=== PATIENT | female | born 1940 | race Caucasian/White ===

== ENCOUNTER 2021-04-05 09:13 | Emergency (ER) | payer OTHER, BC ==
--- OUTSIDE RECORDS SUMMARY | 2021-04-05 09:18 | XMS REPORT | Continuity of Care Document ---
:1940 Author Organization [facility] t Address [address] [place] [address] Dr. Hanley. [address] [place] [address] Care Team Providers Name Role Phone RANDY Willis Primary Care Physician Unavailable Jason PRESSLEY Attending Clinician Unavailable Dale ANDERSON Attending Clinician Unavailable Pob, Lab Main Attending Clinician Unavailable Justin ORTIZ, S Attending Clinician Doctor Unassigned, Name Attending Clinician Unavailable Chad ORTIZ, A Attending Clinician Only, Test Attending Clinician Unavailable 1, Lab Attending Clinician Unavailable Galo Francisco CRNA Attending Clinician CHAD, Jason Admitting Clinician Unavailable Chad ORTIZ, A Admitting Clinician Justin ORTIZ S Admitting Clinician Payers Payer Name Policy Type Policy Number Effective Date Expiration Date S [facility] MEDICARE PART A \T\ [id number] 2006 B 00:00:00 BC TRADITIONAL [id number] 2008 00:00:00 Problems Condition Condition Condition Status Onset Resolution Last Treating Co mments Source Name Details Category Date Date Treatment Clinician Date No known No known Disease Unive rs active active ity of problems problems [facility] Allergies, Adverse Reactions, Alerts Allergy Allergy Status Severity Reaction(s) Onset Inactive Treating Comm ents Source Name Type Date Date Clinician Lisinopr Propensi Active Cough 2019-0 Univer s il ty to 8-14 ity of adverse 00:00: [place] reaction [address] [place] [address] Branch LISINOPR DRUG Active COUGH 2019-0 Univers [place] INGREDI 8-14 ity of 00:00: [address] Social History Social Habit Start Date Stop Date Quantity Comments Source Exposure to Not sure University SARS-CoV-2 [facility] (event) Branch Alcohol intake 2020-02-06 2020-02-06 Ex-drinker [facility] 00:00:00 00:00:00 (finding) [facility] Tobacco use and 2018-11-21 2018-11-21 Never used Universit y of exposure 00:00:00 00:00:00 [facility] Sex Assigned At [birth year] Universit y of 00:00:00 00:00:00 [facility] Smoking Status Start Date Stop Date Source Unknown if ever smoked Universit y of [facility] Never smoker [facility] Medications Ordered Filled Start Stop Current Ordering Indication Dosage Frequency Signature Comments Components Source Medication Medication Date Date Medication? Clinician (SIG) Name Name glimepiride 2019-04 Yes 4mg Take 4 mg U nivers 4 mg tablet 0-28 by mouth 2 it y of 14:09: (two) [address] daily[address] Branch metoprolol 2019-04 Yes 100mg Take 100 Un mike tartrate 0-28 mg by ity of 100 mg 14:09: mouth 2 [place] [address] (two) Medical times [place] daily. metFORMIN 2019- Yes 1000mg Take 1,000 Univers 1,000 mg 24 0-28 mg by ity of hr tablet 14:09: mouth 2 [place] [address] (two) Medical times [place] daily. atorvastati 2019- Yes 20mg Take 20 mg Univers n 20 mg 0-28 by mouth ity of tablet 14:09: at [place] [address] bedtime. Medical Branch pioglitazon 2019- Yes 30mg Take 30 mg Univers e 30 mg 0-28 by mouth ity of tablet 14:09: daily. [address] Branch olmesartan 2019- Yes 20mg Take 20 mg U nivers 20 mg 0-28 by mouth ity of tablet 14:09: daily. [address] Branch celecoxib 2019- Yes 200mg Take 200 Uni vers 200 mg 0-28 mg by ity of capsule 14:09: mouth 2 [place] [address] (two) Medical times [place] daily. GABAPENTIN 2019- Yes 400mg Take 400 Un mike ORAL 0-28 mg by ity of 14:09: mouth 5 [place] [address] (five) Medical times Branch daily. eszopiclone 2020- Yes 1mg Take 1 mg U nivers (LUNESTA) 1 0-28 by mouth ity of mg tablet 14:09: at [place] [address] bedtime. Medical Indication Branch s: 3 x weeks HYDROcodone 2020- Yes 1{tbl} Take 1 Un mike -acetaminop 0-28 tablet by ity of hen 5-325 14:09: mouth 2 [facility] 46 (two) Medical times Branch daily. lansoprazol 2020- Yes 15mg Take 15 mg Univers e 15 mg 0-28 by mouth ity of capsule 14:09: daily. [place] [address] Medical Branch glimepiride 2019- Yes 4mg Take 4 mg U nivers 4 mg tablet 0-28 by mouth 2 it y of 14:09: (two) [place] [address] times Medical daily. Branch metoprolol 2019-04 Yes 100mg Take 100 Un mike tartrate 0-28 mg by ity of 100 mg 14:09: mouth 2 [place] [address] (two) Medical times Branch daily. metFORMIN 2019- Yes 1000mg Take 1,000 Univers 1,000 mg 24 0-28 mg by ity of hr tablet 14:09: mouth 2 [place] [address] (two) Medical times Branch daily. atorvastati 2019- Yes 20mg Take 20 mg Univers n 20 mg 0-28 by mouth ity of tablet 14:09: at [place] [address] bedtime. Medical Branch pioglitazon 2019-04 Yes 30mg Take 30 mg Univers e 30 mg 0-28 by mouth ity of tablet 14:09: daily. [place] [address] Medical Branch olmesartan 2019- Yes 20mg Take 20 mg U nivers 20 mg 0-28 by mouth ity of tablet 14:09: daily. [place] [address] Medical Branch celecoxib 2020- Yes 200mg Take 200 Uni vers 200 mg 0-28 mg by ity of capsule 14:09: mouth 2 [place] [address] (two) Medical times Branch daily. GABAPENTIN 2020- Yes 400mg Take 400 Un mike ORAL 0-28 mg by ity of 14:09: mouth 5 [place] [address] (five) Medical times Branch daily. eszopiclone 2020- Yes 1mg Take 1 mg U nivers (LUNESTA) 1 0-28 by mouth ity of mg tablet 14:09: at [place] [address] bedtime. Medical Indication Branch s: 3 x weeks HYDROcodone 2019- Yes 1{tbl} Take 1 Un mike -acetaminop 0-28 tablet by ity of hen 5-325 14:09: mouth 2 [place] mg tablet 46 (two) Medical times Branch daily. lansoprazol 2019-04 Yes 15mg Take 15 mg Univers e 15 mg 0-28 by mouth ity of capsule 14:09: daily. [place] [address] Medical Branch glimepiride 2019-04 Yes 4mg Take 4 mg U nivers 4 mg tablet 0-28 by mouth 2 it y of 14:09: (two) [place] [address] times Medical daily. Branch metoprolol 2019-04 Yes 100mg Take 100 Un mike tartrate 0-28 mg by ity of 100 mg 14:09: mouth 2 [place] tablet 46 (two) Medical times Branch daily. metFORMIN 2019- Yes 1000mg Take 1,000 Univers 1,000 mg 24 0-28 mg by ity of hr tablet 14:09: mouth 2 [place] [address] (two) Medical times Branch daily. atorvastati 2019-04 Yes 20mg Take 20 mg Univers n 20 mg 0-28 by mouth ity of tablet 14:09: at [place] [address] bedtime. Medical Branch pioglitazon 2019-04 Yes 30mg Take 30 mg Univers e 30 mg 0-28 by mouth ity of tablet 14:09: daily. [place] [address] Medical Branch olmesartan 2019-04 Yes 20mg Take 20 mg U nivers 20 mg 0-28 by mouth ity of tablet 14:09: daily. [place] [address] Medical Branch celecoxib 2019- Yes 200mg Take 200 Uni vers 200 mg 0-28 mg by ity of capsule 14:09: mouth 2 [place] [address] (two) Medical times Branch daily. GABAPENTIN 2020- Yes 400mg Take 400 Un mike ORAL 0-28 mg by ity of 14:09: mouth 5 [place] [address] (five) Medical times Branch daily. eszopiclone 2020- Yes 1mg Take 1 mg U nivers (LUNESTA) 1 0-28 by mouth ity of mg tablet 14:09: at [place] [address] bedtime. Medical Indication Branch s: 3 x weeks HYDROcodone 2019- Yes 1{tbl} Take 1 Un mike -acetaminop 0-28 tablet by ity of hen 5-325 14:09: mouth 2 [place] mg tablet 46 (two) Medical times Branch daily. lansoprazol 2019-04 Yes 15mg Take 15 mg Univers e 15 mg 0-28 by mouth ity of capsule 14:09: daily. [address] Branch glimepiride 2019- Yes 4mg Take 4 mg U nivers 4 mg tablet 0-28 by mouth 2 it y of 14:09: (two) [place] [address] times Medical daily. Branch metoprolol 2019-04 Yes 100mg Take 100 Un mike tartrate 0-28 mg by ity of 100 mg 14:09: mouth 2 [place] tablet 46 (two) Medical times Branch daily. metFORMIN 2019- Yes 1000mg Take 1,000 Univers 1,000 mg 24 0-28 mg by ity of hr tablet 14:09: mouth 2 [place] [address] (two) Medical times Branch daily. atorvastati 2019-04 Yes 20mg Take 20 mg Univers n 20 mg 0-28 by mouth ity of tablet 14:09: at [place] [address] bedtime. Medical Branch pioglitazon 2019-04 Yes 30mg Take 30 mg Univers e 30 mg 0-28 by mouth ity of tablet 14:09: daily. [address] Branch olmesartan 2019-04 Yes 20mg Take 20 mg U nivers 20 mg 0-28 by mouth ity of tablet 14:09: daily. [address] Branch celecoxib 2019- Yes 200mg Take 200 Uni vers 200 mg 0-28 mg by ity of capsule 14:09: mouth 2 [place] [address] (two) Medical times Branch daily. GABAPENTIN 2019- Yes 400mg Take 400 Un mike ORAL 0-28 mg by ity of 14:09: mouth 5 [place] [address] (five) Medical times Branch daily. eszopiclone 2019-04 Yes 1mg Take 1 mg U nivers (LUNESTA) 1 0-28 by mouth ity of mg tablet 14:09: at [place] [address] bedtime. Medical Indication Branch s: 3 x weeks HYDROcodone 2019- Yes 1{tbl} Take 1 Un mike -acetaminop 0-28 tablet by ity of hen 5-325 14:09: mouth 2 [place] mg tablet 46 (two) Medical times Branch daily. lansoprazol 2019- Yes 15mg Take 15 mg Univers e 15 mg 0-28 by mouth ity of capsule 14:09: daily. [address] Branch glimepiride 2019-04 Yes 4mg Take 4 mg U nivers 4 mg tablet 0-28 by mouth 2 it y of 14:09: (two) [place] [address] times Medical daily. Branch metoprolol 2019-04 Yes 100mg Take 100 Un mike tartrate 0-28 mg by ity of 100 mg 14:09: mouth 2 [place] tablet 46 (two) Medical times Branch daily. metFORMIN 2019-04 Yes 1000mg Take 1,000 Univers 1,000 mg 24 0-28 mg by ity of hr tablet 14:09: mouth 2 [place] [address] (two) Medical times Branch daily. atorvastati 2019-04 Yes 20mg Take 20 mg Univers n 20 mg 0-28 by mouth ity of tablet 14:09: at [place] [address] bedtime. Medical Branch pioglitazon 2019-04 Yes 30mg Take 30 mg Univers e 30 mg 0-28 by mouth ity of tablet 14:09: daily. [place] [address] Medical Branch olmesartan 2019-04 Yes 20mg Take 20 mg U nivers 20 mg 0-28 by mouth ity of tablet 14:09: daily. [address] Branch celecoxib 2019- Yes 200mg Take 200 Uni vers 200 mg 0-28 mg by ity of capsule 14:09: mouth 2 [place] [address] (two) Medical times Branch daily. GABAPENTIN 2019-04 Yes 400mg Take 400 Un mike ORAL 0-28 mg by ity of 14:09: mouth 5 [place] [address] (five) Medical times Branch daily. eszopiclone 2019-04 Yes 1mg Take 1 mg U nivers (LUNESTA) 1 0-28 by mouth ity of mg tablet 14:09: at [place] [address] bedtime. Medical Indication Branch s: 3 x weeks HYDROcodone 2019- Yes 1{tbl} Take 1 Un mike -acetaminop 0-28 tablet by ity of hen 5-325 14:09: mouth 2 [place] mg tablet (two) Medical times Branch daily. lansoprazol 2019- Yes 15mg Take 15 mg Univers e 15 mg 0-28 by mouth ity of capsule 14:09: daily. [place] [address] Medical Branch neomycin-po 2019- Yes PRN, Univer s lymyxin-dex 0-28 Starting ity of amethasone 13:18: Wed [place] (MAXITROL) 00 02/05/20 Medic al 3.5 at 0818, Branch mg/g-10,000 Until unit/g-0.1 Discontinu % ed, ophthalmic Routine, ointment Intra-op dexamethaso 2019-04 Yes PRN, Univer s ne 0-28 Starting ity of (DECADRON 13:17: Mon [place] PHOSPHATE) 00 02/05/20 Medic al injection at 0817, Branch Until Discontinu ed, Routine, Intra-op ceFAZolin 2019-04 Yes PRN, Univers (ANCEF) 0-28 Starting ity of injection 13:17: Mon02/05/20 Medical at 0817, Branch Until Discontinu ed, LISA, Intra-op carbachoL 2019-04 Yes PRN, Univers (MIOSTAT) 0-28 Starting ity of 0.01 % 13:17: Mon intraocular 00 02/05/20 Medi kev injection at 0817, Branch Until Discontinu ed, Routine, Intra-op sodium 2019-04 Yes PRN, Univers chloride 0-28 Starting ity of (NS) 13:16: Mon [place] injection 00 02/05/20 Medica l at 0816, Branch Until Discontinu ed, Routine, Intra-op gentamicin 2019-04 Yes PRN, Univers injection 0-28 Starting ity of 13:16: Mon02/05/20 Medical at 0816, Branch Until Discontinu ed, LISA, Intra-op EPINEPHrine 2019-04 Yes PRN, Univer s 1:1,000 (1 0- Starting ity o f mg/mL) 13:14: Mon [place] (ADRENALIN) 00 02/05/20 Medi kev injection at 0814, Branch Until Discontinu ed, Routine, Intra-op DUOVISC 2019-04 Yes PRN, Univers (DUOVISC 0-28 Starting ity of VISCO 13:14: Mon [place] ELASTIC) 3 00 02/05/20 Medic al %-4 %(0.5 at 0814, Branch mL) 1 % Until (0.55 mL) Discontinu intraocular ed, injection Routine, Intra-op balanced 2019-04 Yes PRN, Univers salt irrig 0-28 Starting ity o f soln comb1 13:13: Mon [place] (BSS PLUS) 00 02/05/20 Medic al ophthalmic at 0813, Branc h solution Until 500 mL bag Discontinu ed, Routine, Intra-op water for 2019-04 Yes PRN, Univers irrigation 0-28 Starting ity o f irrigation 13:00: Wed [place] solution 02/05/20 Medical at 0800, Branch Until Discontinu ed, Routine, Intra-op mydriatic 2019-04 2020- No .5mL 0.5 mL, Univ ers #5 0-28 10- Right Eye, ity of ophthalmic 13:00: 11:54 ONCE, 1 [place] as solution 00 :00 dose, Mon Medica l 0.5 mL 02/05/20 Branch syringe at 0800, Routine Hyaluronida 2019-04 Yes PRN, Univer s se, Human 0-28 Starting ity of Recomb. 12:58: Mon [place] (HYLENEX) 02/05/20 Medica l injection at 0758, [place] Until Discontinu ed, Routine, Intra-op eye block 2019-04 Yes PRN, Univers syringe 11 0-28 Starting ity o f mL 12:58: Wed [place] 02/05/20 Medical at 0758, Branch Until Discontinu ed, Intra-op lactated 2019-04 2020- No 1000mL at [address] [facility] rs ringers IV 0-28 10-28 mL/hr, ity of infusion 11:45: 11:54 1,000 mL, Gurdeep as 1,000 mL 00 :00 IV Medical Infusion, [place] ONCE, 1 dose, Mon02/05/20 at 0645, Routine, DSU Pre-op glimepiride 2019-04 Yes 4mg Take 4 mg U nivers 4 mg tablet 0-28 by mouth 2 it y of 09:09: (two) [place] [address] times [facility] daily. Branch metoprolol 2019-04 Yes 100mg Take 100 Un mike tartrate 0-28 mg by ity of 100 mg 09:09: mouth 2 [place] tablet 46 (two) Medical times [place] daily. metFORMIN 2019- Yes 1000mg Take 1,000 Univers 1,000 mg 24 0-28 mg by ity of hr tablet 09:09: mouth 2 [place] 46 (two) Medical times [place] daily. atorvastati 2019-04 Yes 20mg Take 20 mg Univers n 20 mg 0-28 by mouth ity of tablet 09:09: at [place] [address] bedtime. Medical Branch pioglitazon 2019-04 Yes 30mg Take 30 mg Univers e 30 mg 0-28 by mouth ity of tablet 09:09: daily. [place] [address] Medical Branch olmesartan 2020- Yes 20mg Take 20 mg U nivers 20 mg 0-28 by mouth ity of tablet 09:09: daily. [place] [address] Medical Branch celecoxib 2020- Yes 200mg Take 200 Uni vers 200 mg 0-28 mg by ity of capsule 09:09: mouth 2 [place] [address] (two) Medical times Branch daily. GABAPENTIN 2020- Yes 400mg Take 400 Un mike ORAL 0-28 mg by ity of 09:09: mouth 5 [place] [address] (five) Medical times Branch daily. eszopiclone 2020- Yes 1mg Take 1 mg U nivers (LUNESTA) 1 0-28 by mouth ity of mg tablet 09:09: at [place] [address] bedtime. Medical Indication Branch s: 3 x weeks HYDROcodone 2020- Yes 1{tbl} Take 1 Un mike -acetaminop 0-28 tablet by ity of hen 5-325 09:09: mouth 2 [place] [address] (two) Medical times Branch daily. lansoprazol 2020- Yes 15mg Take 15 mg Univers e 15 mg 0-28 by mouth ity of capsule 09:09: daily. [address] Branch glimepiride 2019- Yes 4mg Take 4 mg U nivers 4 mg tablet 0-28 by mouth 2 it y of 09:09: (two) [place] [address] times [facility] daily. Branch metoprolol 2019- Yes 100mg Take 100 Un mike tartrate 0-28 mg by ity of 100 mg 09:09: mouth 2 [place] [address] (two) Medical times Branch daily. metFORMIN 2020- Yes 1000mg Take 1,000 Univers 1,000 mg 24 0-28 mg by ity of hr tablet 09:09: mouth 2 [place] [address] (two) Medical times Branch daily. atorvastati 2020- Yes 20mg Take 20 mg Univers n 20 mg 0-28 by mouth ity of tablet 09:09: at [place] [address] bedtime. Medical Branch pioglitazon 2020- Yes 30mg Take 30 mg Univers e 30 mg 0-28 by mouth ity of tablet 09:09: daily. [place] [address] Medical Branch olmesartan 2020- Yes 20mg Take 20 mg U nivers 20 mg 0-28 by mouth ity of tablet 09:09: daily. [place] [address] Medical Branch celecoxib 2020- Yes 200mg Take 200 Uni vers 200 mg 0-28 mg by ity of capsule 09:09: mouth 2 [place] [address] (two) Medical times Branch daily. GABAPENTIN 2019-04 Yes 400mg Take 400 Un mike ORAL 0-28 mg by ity of 09:09: mouth 5 [place] 46 (five) Medical times Branch daily. eszopiclone 2019-04 Yes 1mg Take 1 mg U nivers (LUNESTA) 1 0-28 by mouth ity of mg tablet 09:09: at [place] [address] bedtime. Medical Indication Branch s: 3 x weeks HYDROcodone 2019- Yes 1{tbl} Take 1 Un mike -acetaminop 0-28 tablet by ity of hen 5-325 09:09: mouth 2 [facility] tablet 46 (two) Medical times Branch daily. lansoprazol 2019-04 Yes 15mg Take 15 mg Univers e 15 mg 0-28 by mouth ity of capsule 09:09: daily. [place] [address] Medical Branch glimepiride 2019-04 Yes 4mg Take 4 mg U nivers 4 mg tablet 0-14 by mouth 2 it y of 15:16: (two) [place] [address] times Medical daily. Branch metoprolol 2019-04 Yes 100mg Take 100 Un mike tartrate 0-14 mg by ity of 100 mg 15:16: mouth 2 [place] [address] (two) Medical times Branch daily. metFORMIN 2019-04 Yes 1000mg Take 1,000 Univers 1,000 mg 24 0-14 mg by ity of hr tablet 15:16: mouth 2 [place] [address] (two) Medical times Branch daily. atorvastati 2019- Yes 20mg Take 20 mg Univers n 20 mg 0-14 by mouth ity of tablet 15:16: at [place] [address] bedtime. Medical Branch pioglitazon 2019- Yes 30mg Take 30 mg Univers e 30 mg 0-14 by mouth ity of tablet 15:16: daily. [place] [address] Medical Branch olmesartan 2019- Yes 20mg Take 20 mg U nivers 20 mg 0-14 by mouth ity of tablet 15:16: daily. [place] [address] Medical Branch celecoxib 2019- Yes 200mg Take 200 Uni vers 200 mg 0-14 mg by ity of capsule 15:16: mouth 2 [place] [address] (two) Medical times Branch daily. GABAPENTIN 2019- Yes 400mg Take 400 Un mike ORAL 0-14 mg by ity of 15:16: mouth 5 [place] [address] (five) Medical times Branch daily. eszopiclone 2020- Yes 1mg Take 1 mg U nivers (LUNESTA) 1 0-14 by mouth ity of mg tablet 15:16: at [place] [address] bedtime. Medical Indication Branch s: 3 x weeks HYDROcodone 2020- Yes 1{tbl} Take 1 Un mike -acetaminop 0-14 tablet by ity of hen 5-325 15:16: mouth 2 [place] mg tablet 31 (two) Medical times Branch daily. lansoprazol 2019- Yes 15mg Take 15 mg Univers e 15 mg 0-14 by mouth ity of capsule 15:16: daily. [address] Branch glimepiride 2019- Yes 4mg Take 4 mg U nivers 4 mg tablet 0-14 by mouth 2 it y of 15:16: (two) [place] [address] times Medical daily. Branch metoprolol 2019-04 Yes 100mg Take 100 Un mike tartrate 0-14 mg by ity of 100 mg 15:16: mouth 2 [place] tablet (two) Medical times Branch daily. metFORMIN 2019- Yes 1000mg Take 1,000 Univers 1,000 mg 24 0-14 mg by ity of hr tablet 15:16: mouth 2 [place] [address] (two) Medical times Branch daily. atorvastati 2019- Yes 20mg Take 20 mg Univers n 20 mg 0-14 by mouth ity of tablet 15:16: at [place] [address] bedtime. Medical Branch pioglitazon 2019- Yes 30mg Take 30 mg Univers e 30 mg 0-14 by mouth ity of tablet 15:16: daily. [place] [address] Medical Branch olmesartan 2019- Yes 20mg Take 20 mg U nivers 20 mg 0-14 by mouth ity of tablet 15:16: daily. [place] [address] Medical Branch celecoxib 2020- Yes 200mg Take 200 Uni vers 200 mg 0-14 mg by ity of capsule 15:16: mouth 2 [place] [address] (two) Medical times Branch daily. GABAPENTIN 2020- Yes 400mg Take 400 Un mike ORAL 0-14 mg by ity of 15:16: mouth 5 [place] [address] (five) Medical times Branch daily. eszopiclone 2019- Yes 1mg Take 1 mg U nivers (LUNESTA) 1 0-14 by mouth ity of mg tablet 15:16: at [place] [address] bedtime. Medical Indication Branch s: 3 x weeks HYDROcodone 2019- Yes 1{tbl} Take 1 Un mike -acetaminop 0-14 tablet by ity of hen 5-325 15:16: mouth 2 [facility] tablet (two) Medical times Branch daily. lansoprazol 2019-04 Yes 15mg Take 15 mg Univers e 15 mg 0-14 by mouth ity of capsule 15:16: daily. [place] [address] Medical Branch glimepiride 2019- Yes 4mg Take 4 mg U nivers 4 mg tablet 0-14 by mouth 2 it y of 15:16: (two) [place] [address] times Medical daily. Branch metoprolol 2019-04 Yes 100mg Take 100 Un mike tartrate 0-14 mg by ity of 100 mg 15:16: mouth 2 [place] [address] (two) Medical times Branch daily. metFORMIN 2019-04 Yes 1000mg Take 1,000 Univers 1,000 mg 24 0-14 mg by ity of hr tablet 15:16: mouth 2 [place] [address] (two) Medical times Branch daily. atorvastati 2019- Yes 20mg Take 20 mg Univers n 20 mg 0-14 by mouth ity of tablet 15:16: at [place] [address] bedtime. Medical Branch pioglitazon 2019- Yes 30mg Take 30 mg Univers e 30 mg 0-14 by mouth ity of tablet 15:16: daily. [place] [address] Medical Branch olmesartan 2019- Yes 20mg Take 20 mg U nivers 20 mg 0-14 by mouth ity of tablet 15:16: daily. [place] [address] Medical Branch celecoxib 2020- Yes 200mg Take 200 Uni vers 200 mg 0-14 mg by ity of capsule 15:16: mouth 2 [place] [address] (two) Medical times Branch daily. GABAPENTIN 2020- Yes 400mg Take 400 Un mike ORAL 0-14 mg by ity of 15:16: mouth 5 [place] [address] (five) Medical times Branch daily. eszopiclone 2020- Yes 1mg Take 1 mg U nivers (LUNESTA) 1 0-14 by mouth ity of mg tablet 15:16: at [place] [address] bedtime. Medical Indication Branch s: 3 x weeks HYDROcodone 2019- Yes 1{tbl} Take 1 Un mike -acetaminop 0-14 tablet by ity of hen 5-325 15:16: mouth 2 [place] mg tablet 31 (two) Medical times [place] daily. lansoprazol 2019-04 Yes 15mg Take 15 mg Univers e 15 mg 0-14 by mouth ity of capsule 15:16: daily. [place] 31 Medical Branch sodium 2019-04 Yes PRN, Univers chloride 0-14 Starting ity of (NS) 14:28: Mon [place] injection 00 01/22/20 Medica l at 0928, Branch Until Discontinu ed, Routine, Intra-op neomycin-po 2019-04 Yes PRN, Univer s lymyxin-dex 0-14 Starting ity of amethasone 14:28: Mon [place] (MAXITROL) 00 01/22/20 Medic al 3.5 at 0928, Branch mg/g-10,000 Until unit/g-0.1 Discontinu % ed, ophthalmic Routine, ointment Intra-op gentamicin 2019-04 Yes PRN, Univers injection 0-14 Starting ity of 14:28: Mon [place] 01/22/20 Medical at 0928, [place] Until Discontinu ed, LISA, Intra-op dexamethaso 2019-04 Yes PRN, Univer s ne 0-14 Starting ity of (DECADRON 14:28: Mon [place] PHOSPHATE) 01/22/20 Medic al injection at 0928, [place] Until Discontinu ed, Routine, Intra-op ceFAZolin 2019-04 Yes PRN, Univers (ANCEF) 0-14 Starting ity of injection 14:28: Mon [place] 01/22/20 Medical at 0928, [place] Until Discontinu ed, LISA, Intra-op EPINEPHrine 2019-04 Yes PRN, Univer s 1:1,000 (1 0-14 Starting ity o f mg/mL) 14:21: Mon [place] (ADRENALIN) 00 01/22/20 Medi kev injection at 0921, [place] Until Discontinu ed, Routine, Intra-op DUOVISC 2019-04 Yes PRN, Univers (DUOVISC 0-14 Starting ity of VISCO 14:20: Mon [place] ELASTIC) 3 00 01/22/20 Medic al %-4 %(0.5 at 0920, Branch mL) 1 % Until (0.55 mL) Discontinu intraocular ed, injection Routine, Intra-op water for 2019-04 Yes PRN, Univers irrigation 0-14 Starting ity o f irrigation 14:13: Mon [place] solution 00 01/22/20 Medical at 0913, Branch Until Discontinu ed, Routine, Intra-op Hyaluronida 2019-04 Yes PRN, Univer s se, Human 0-14 Starting ity of Recomb. 14:07: Mon [place] (HYLENEX) 00 01/22/20 Medica l injection at 0907, Branch Until Discontinu ed, Routine, Intra-op eye block 2019-04 Yes PRN, Univers syringe 11 0-14 Starting ity o f mL 14:07: Mon [place] 00 01/22/20 Medical at 0907, Branch Until Discontinu ed, Intra-op carbachoL 2019-04 Yes PRN, Univers (MIOSTAT) 0-14 Starting ity of 0.01 % 13:59: Mon [place] intraocular 01/22/20 Medi kev injection at 0859, Branch Until Discontinu ed, Routine, Intra-op balanced 2019-04 Yes PRN, Univers salt irrig 0-14 Starting ity o f soln comb1 13:56: Mon [place] (BSS PLUS) 01/22/20 Medic al ophthalmic at 0856, Bran h solution Until 500 mL bag Discontinu ed, Routine, Intra-op mydriatic 2019-04 2020- No .5mL 0.5 mL, [facility] ers #5 0-14 1014 Left Eye, ity of ophthalmic 12:45: 12:45 ONCE, 1 [place] as solution 00 :00 dose, Mon Medica l 0.5 mL 01/22/20 Branch syringe at 0745, Routine, DSU Pre-op lactated 2019-04 2020- No 1000mL at [address] [facility] rs ringers IV 0-14 10-14 mL/hr, ity of infusion 12:45: 12:45 1,000 mL, [place] as 1,000 mL 00 :00 IV Medical Infusion, Branch ONCE, 1 dose, Mon01/22/20 at 0745, Routine, DSU Pre-op glimepiride 2018-04 Yes 4mg Take 4 mg U nivers 4 mg tablet 0-07 by mouth 2 it y of 16:35: (two) [place] 57 times Medical daily. Branch metoprolol 2018-04 Yes 100mg Take 100 Un mike tartrate 0-07 mg by ity of 100 mg 16:35: mouth 2 [place] tablet 57 (two) Medical times Branch daily. metFORMIN 2018-04 Yes 1000mg Take 1,000 Univers 1,000 mg 24 0-07 mg by ity of hr tablet 16:35: mouth 2 [place] [address] (two) Medical times Branch daily. atorvastati 2019 Yes 20mg Take 20 mg Univers n 20 mg 0-07 by mouth ity of tablet 16:35: at [place] [address] bedtime. Medical Branch pioglitazon 2018-04 Yes 30mg Take 30 mg Univers e 30 mg 0-07 by mouth ity of tablet 16:35: daily. [place] [address] Medical Branch olmesartan 2018- Yes 20mg Take 20 mg U nivers 20 mg 0-07 by mouth ity of tablet 16:35: daily. [place] [address] Medical Branch celecoxib 2019- Yes 200mg Take 200 Uni vers 200 mg 0-07 mg by ity of capsule 16:35: mouth 2 [place] [address] (two) Medical times Branch daily. GABAPENTIN 2018-04 Yes 400mg Take 400 Un mike ORAL 0-07 mg by ity of 16:35: mouth 5 [place] [address] (five) Medical times Branch daily. eszopiclone 2018- Yes 1mg Take 1 mg U nivers (LUNESTA) 1 0-07 by mouth ity of mg tablet 16:35: at [place] [address] bedtime. Medical Indication Branch s: 3 x weeks HYDROcodone 2018- Yes 1{tbl} Take 1 Un mike -acetaminop 0-07 tablet by ity of hen 5-325 16:35: mouth 2 [place] mg tablet 57 (two) Medical times Branch daily. lansoprazol 2018- Yes 15mg Take 15 mg Univers e 15 mg 0-07 by mouth ity of capsule 16:35: daily. [place] [address] Medical Branch glimepiride 2018- Yes 4mg Take 4 mg U nivers 4 mg tablet 0-07 by mouth 2 it y of 16:35: (two) [place] [address] times Medical daily. Branch metoprolol 2018-04 Yes 100mg Take 100 Un mike tartrate 0-07 mg by ity of 100 mg 16:35: mouth 2 [place] tablet 57 (two) Medical times Branch daily. metFORMIN 2018-04 Yes 1000mg Take 1,000 Univers 1,000 mg 24 0-07 mg by ity of hr tablet 16:35: mouth 2 [place] 57 (two) Medical times Branch daily. atorvastati 2018-04 Yes 20mg Take 20 mg Univers n 20 mg 0-07 by mouth ity of tablet 16:35: at [place] [address] bedtime. Medical Branch pioglitazon 2018- Yes 30mg Take 30 mg Univers e 30 mg 0-07 by mouth ity of tablet 16:35: daily. [place] [address] Medical Branch olmesartan 2019- Yes 20mg Take 20 mg U nivers 20 mg 0-07 by mouth ity of tablet 16:35: daily. [place] [address] Medical Branch celecoxib 2019- Yes 200mg Take 200 Uni vers 200 mg 0-07 mg by ity of capsule 16:35: mouth 2 [place] [address] (two) Medical times Branch daily. GABAPENTIN 2019 Yes 400mg Take 400 Un mike ORAL 0-07 mg by ity of 16:35: mouth 5 [place] [address] (five) Medical times Branch daily. eszopiclone 2018- Yes 1mg Take 1 mg U nivers (LUNESTA) 1 0-07 by mouth ity of mg tablet 16:35: at [place] [address] bedtime. Medical Indication Branch s: 3 x weeks HYDROcodone 2019- Yes 1{tbl} Take 1 Un mike -acetaminop 0-07 tablet by ity of hen 5-325 16:35: mouth 2 [place] mg tablet 57 (two) Medical times Branch daily. lansoprazol 2018- Yes 15mg Take 15 mg Univers e 15 mg 0-07 by mouth ity of capsule 16:35: daily. [place] [address] Medical Branch glimepiride 2018- Yes 4mg Take 4 mg U nivers 4 mg tablet 0-07 by mouth 2 it y of 16:35: (two) [place] [address] times Medical daily. Branch metoprolol 2018- Yes 100mg Take 100 Un mike tartrate 0-07 mg by ity of 100 mg 16:35: mouth 2 [place] tablet 57 (two) Medical times Branch daily. metFORMIN 2019- Yes 1000mg Take 1,000 Univers 1,000 mg 24 0-07 mg by ity of hr tablet 16:35: mouth 2 [place] 57 (two) Medical times Branch daily. atorvastati 2018-04 Yes 20mg Take 20 mg Univers n 20 mg 0-07 by mouth ity of tablet 16:35: at [place] [address] bedtime. Medical Branch pioglitazon 2018-04 Yes 30mg Take 30 mg Univers e 30 mg 0-07 by mouth ity of tablet 16:35: daily. [place] [address] Medical Branch olmesartan 2018-04 Yes 20mg Take 20 mg U nivers 20 mg 0-07 by mouth ity of tablet 16:35: daily. [place] [address] Medical Branch celecoxib 2019- Yes 200mg Take 200 Uni vers 200 mg 0-07 mg by ity of capsule 16:35: mouth 2 [place] [address] (two) Medical times Branch daily. GABAPENTIN 2019- Yes 400mg Take 400 Un mike ORAL 0-07 mg by ity of 16:35: mouth 5 [place] [address] (five) Medical times Branch daily. eszopiclone 2018- Yes 1mg Take 1 mg U nivers (LUNESTA) 1 0-07 by mouth ity of mg tablet 16:35: at [place] [address] bedtime. Medical Indication Branch s: 3 x weeks HYDROcodone 2018- Yes 1{tbl} Take 1 Un mike -acetaminop 0-07 tablet by ity of hen 5-325 16:35: mouth 2 [place] mg tablet 57 (two) Medical times Branch daily. lansoprazol 2018-04 Yes 15mg Take 15 mg Univers e 15 mg 0-07 by mouth ity of capsule 16:35: daily. [place] [address] Medical Branch glimepiride 2018- Yes 4mg Take 4 mg U nivers 4 mg tablet 9-17 by mouth 2 it y of 12:44: (two) [place] [address] times Medical daily. Branch metoprolol 2019- Yes 100mg Take 100 Un mike tartrate 9-17 mg by ity of 100 mg 12:44: mouth 2 [place] tablet 57 (two) Medical times Branch daily. metFORMIN 2019- Yes 1000mg Take 1,000 Univers 1,000 mg 24 9-17 mg by ity of hr tablet 12:44: mouth 2 [place] [address] (two) Medical times Branch daily. atorvastati 2019- Yes 20mg Take 20 mg Univers n 20 mg 9-17 by mouth ity of tablet 12:44: at [place] [address] bedtime. Medical Branch pioglitazon 2019- Yes 30mg Take 30 mg Univers e 30 mg 9-17 by mouth ity of tablet 12:44: daily. [place] [address] Medical Branch olmesartan 2019-0 Yes 20mg Take 20 mg U nivers 20 mg 9-17 by mouth ity of tablet 12:44: daily. [place] [address] Medical Branch celecoxib 2019-0 Yes 200mg Take 200 Uni vers 200 mg 9-17 mg by ity of capsule 12:44: mouth 2 [place] [address] (two) Medical times Branch daily. GABAPENTIN 2019-0 Yes 400mg Take 400 Un mike ORAL 9-17 mg by ity of 12:44: mouth 5 [place] [address] (five) Medical times Branch daily. eszopiclone 2019-0 Yes 1mg Take 1 mg U nivers (LUNESTA) 1 9-17 by mouth ity of mg tablet 12:44: at [place] [address] bedtime. Medical Indication Branch s: 3 x weeks HYDROcodone 2019-0 Yes 1{tbl} Take 1 Un mike -acetaminop 9-17 tablet by ity of hen 5-325 12:44: mouth 2 [place] tablet 57 (two) Medical times Branch daily. lansoprazol 2019-0 Yes 15mg Take 15 mg Univers e 15 mg 9-17 by mouth ity of capsule 12:44: daily. [place] [address] Medical Branch bupivacaine 2019-0 Yes PRN, Univer s (preserv 16 Starting ity of free) 15:17: [facility] (SENSORCAIN 12/24/[address] dical E MPF) 0.25 1017, Branch % (2.5 Until mg/mL) Discontinu injection ed, Routine, Intra-op triamcinolo 0 Yes PRN, Univer s ne 12-24 Starting ity of acetonide 13:10: [facility] (KENALOG) 12/24/18 at Medi kev injection 0810, [place] Until Discontinu ed, Routine, Intra-op sodium 0 Yes PRN, Univers chloride 12-24 Starting ity of 23.4 % 13:10: [facility] HYPERTONIC 12/24/18 at Med ical piggyback 0810, [place] Until Discontinu ed, Routine, Intra-op lidocaine 2018-0 Yes PRN, Univers 1% 12-24 Starting ity of (XYLOCAINE) 13:10: [facility] 10 mg/mL (1 00 12/24/[address] dical %) 0810, Branch injection Until Discontinu ed, Routine, Intra-op iohexol 2018-0 Yes PRN, Univers (OMNIPAQUE 9-16 Starting ity o f 300-50 mL)) 13:10: Mon [place] injection 00 12/24/18 at Medi kev 0810, Branch Until Discontinu ed, Routine, Intra-op lactated 2019-0 Yes 500mL at 100 Univer s ringers IV 9-16 mL/hr, 500 ity of infusion 12:30: mL, IV [place] 500 mL 00 Infusion, Medical CONTINUOUS Branch , Starting 12/24/18 at 0730, Until Discontinu ed, Routine, DSU Pre-op glimepiride 2019-0 Yes 4mg Take 4 mg U nivers 4 mg tablet 8-19 by mouth 2 it y of 13:32: (two) [place] [address] times Medical daily. Branch metoprolol 2019-0 Yes 100mg Take 100 Un mike tartrate 8-19 mg by ity of 100 mg 13:32: mouth 2 [place] [address] (two) Medical times Branch daily. metFORMIN 2019-0 Yes 1000mg Take 1,000 Univers 1,000 mg 24 8-19 mg by ity of hr tablet 13:32: mouth 2 [place] [address] (two) Medical times Branch daily. atorvastati 2019-0 Yes 20mg Take 20 mg Univers n 20 mg 8-19 by mouth ity of tablet 13:32: at [place] [address] bedtime. Medical Branch pioglitazon 2019-0 Yes 30mg Take 30 mg Univers e 30 mg 8-19 by mouth ity of tablet 13:32: daily. [place] [address] Medical Branch olmesartan 2019-0 Yes 20mg Take 20 mg U nivers 20 mg 8-19 by mouth ity of tablet 13:32: daily. [place] [address] Medical Branch celecoxib 2019-0 Yes 200mg Take 200 Uni vers 200 mg 8-19 mg by ity of capsule 13:32: mouth 2 [place] [address] (two) Medical times Branch daily. GABAPENTIN 2019-0 Yes 400mg Take 400 Un mike ORAL 8-19 mg by ity of 13:32: mouth 5 [place] [address] (five) Medical times Branch daily. eszopiclone 2019-0 Yes 1mg Take 1 mg U nivers (LUNESTA) 1 8-19 by mouth ity of mg tablet 13:32: at [place] [address] bedtime. Medical Indication Branch s: 3 x weeks glimepiride 2019-0 Yes 4mg Take 4 mg U nivers 4 mg tablet 8-19 by mouth 2 it y of 13:32: (two) [place] [address] times Medical daily. Branch metoprolol 2019-0 Yes 100mg Take 100 Un mike tartrate 8-19 mg by ity of 100 mg 13:32: mouth 2 [place] tablet 51 (two) Medical times Branch daily. metFORMIN 2019-0 Yes 1000mg Take 1,000 Univers 1,000 mg 24 8-19 mg by ity of hr tablet 13:32: mouth 2 [place] [address] (two) Medical times Branch daily. atorvastati 2019-0 Yes 20mg Take 20 mg Univers n 20 mg 8-19 by mouth ity of tablet 13:32: at [place] [address] bedtime. Medical Branch pioglitazon 2019-0 Yes 30mg Take 30 mg Univers e 30 mg 8-19 by mouth ity of tablet 13:32: daily. [place] [address] Medical Branch olmesartan 2019-0 Yes 20mg Take 20 mg U nivers 20 mg 8-19 by mouth ity of tablet 13:32: daily. [place] [address] Medical Branch celecoxib 2019-0 Yes 200mg Take 200 Uni vers 200 mg 8-19 mg by ity of capsule 13:32: mouth 2 [place] [address] (two) Medical times Branch daily. GABAPENTIN 2019-0 Yes 400mg Take 400 Un mike ORAL 8-19 mg by ity of 13:32: mouth 5 [place] [address] (five) Medical times Branch daily. eszopiclone 2019-0 Yes 1mg Take 1 mg U nivers (LUNESTA) 1 8-19 by mouth ity of mg tablet 13:32: at [place] [address] bedtime. Medical Indication Branch s: 3 x weeks HYDROcodone 2019-0 Yes 1{tbl} Take 1 Un mike -acetaminop 8-19 tablet by ity of hen 5-325 13:32: mouth 2 [place] mg tablet 51 (two) Medical times Branch daily. glimepiride 2019-0 Yes 4mg Take 4 mg U nivers 4 mg tablet 8-19 by mouth 2 it y of 13:32: (two) [place] [address] times Medical daily. Branch metoprolol 2019-0 Yes 100mg Take 100 Un mike tartrate 8-19 mg by ity of 100 mg 13:32: mouth 2 [place] tablet (two) Medical times Branch daily. metFORMIN 2019-0 Yes 1000mg Take 1,000 Univers 1,000 mg 24 8-19 mg by ity of hr tablet 13:32: mouth 2 [place] [address] (two) Medical times Branch daily. atorvastati 2019-0 Yes 20mg Take 20 mg Univers n 20 mg 8-19 by mouth ity of tablet 13:32: at [place] [address] bedtime. Medical Branch pioglitazon 2019-0 Yes 30mg Take 30 mg Univers e 30 mg 8-19 by mouth ity of tablet 13:32: daily. [place] [address] Medical Branch olmesartan 2019-0 Yes 20mg Take 20 mg U nivers 20 mg 8-19 by mouth ity of tablet 13:32: daily. [place] [address] Medical Branch celecoxib 2019-0 Yes 200mg Take 200 Uni vers 200 mg 8-19 mg by ity of capsule 13:32: mouth 2 [place] [address] (two) Medical times Branch daily. GABAPENTIN 2019-0 Yes 400mg Take 400 Un mike ORAL 8-19 mg by ity of 13:32: mouth 5 [place] [address] (five) Medical times Branch daily. eszopiclone 2019-0 Yes 1mg Take 1 mg U nivers (LUNESTA) 1 8-19 by mouth ity of mg tablet 13:32: at [place] [address] bedtime. Medical Indication Branch s: 3 x weeks HYDROcodone 2019-0 Yes 1{tbl} Take 1 Un mike -acetaminop 8-19 tablet by ity of hen 5-325 13:32: mouth 2 [place] tablet (two) Medical times Branch daily. FENTanyl PF 2019-0 Yes 25ug 25 mcg, Uni vers (SUBLIMAZE 8-19 Slow IV ity of (PF)) 13:18: Push, [place] injection 17 Q5MIN PRN, Medi kev 25 mcg 4 doses, Branch Starting 11/26/18 at 0818, Until Discontinu ed, Routine, Pain (scale 7-10), PACU FENTanyl PF 2019-0 Yes 25ug 25 mcg, Uni vers (SUBLIMAZE 8-19 Slow IV ity of (PF)) 13:18: Push, [place] injection 17 Q5MIN PRN, Medi kev 25 mcg 4 doses, Branch Starting 11/26/18 at 0818, Until Discontinu ed, Routine, Pain (scale 4-6), PACU ondansetron 2019-0 Yes 4mg 4 mg, Slow Univers (ZOFRAN 8-19 IV Push, ity of (PF)) 13:18: PRN, 1 [place] injection 4 17 dose, Medical mg Starting Branch 11/26/18 at 0818, Until Discontinu ed, Routine, Nausea and Vomiting (N/V), PACU triamcinolo 2018-0 Yes PRN, Univer s ne 11-26 Starting ity of acetonide 12:42: Mon [place] (KENALOG) 00 11/26/18 at [place] kev injection 0742, Branch Until Discontinu ed, Routine, Intra-op sodium 2018-0 Yes PRN, Univers chloride 11-26 Starting ity of 23.4 % 12:42: Mon [place] HYPERTONIC 00 11/26/[address] [facility] ical piggyback 0742, Branch Until Discontinu ed, Routine, Intra-op lidocaine 2018-0 Yes PRN, Univers 1% 11-26 Starting ity of (XYLOCAINE) 12:42: Mon [place] 10 mg/mL (1 00 11/26/[address] dical %) 0742, Branch injection Until Discontinu ed, Routine, Intra-op bupivacaine 2018-0 Yes PRN, Univer s (preserv 11-26 Starting ity of free) 12:42: [facility] (SENSORCAIN 00 11/26/[address] dical E MPF) 0.25 0742, [place] % (2.5 Until mg/mL) Discontinu injection ed, Routine, Intra-op lidocaine 2018- 2019- No ONCE INTRA U nivers 1% 11-26 PROCEDURE, ity of (XYLOCAINE) 12:38: 14:56 Starting [place] 100 mg/10 00 :36 Mon Medical mL (1 %) 11/26/18 at [facility] h injection 0738, Until [facility] 11/26/18 at 0956, Routine, Intra-op propofol 0 2019- No ONCE INTRA Un mike injection 11-26 PROCEDURE, ity of 12:38: 14:56 Starting [place] 00 :32 Mon Medical 11/26/18 at Branch 0738, Until [facility] 11/26/18 at 0956, Routine, Intra-op ceFAZolin 2019- No 1000mg 1,000 mg, Univers (ANCEF) 11-26 IV ity of 1,000 mg in 12:30: 12:33 Piggyback, [place] NaCl 0.9% 00 :00 ONCE, 1 Medical (NS) 50 mL dose, Mon Bran ch MINI-BAG 11/26/18 at 0730, 50 mL, DSU Pre-op
Reason for Anti-Infec tive: Surgical Prophylaxi s
Surgi kev Prophylaxi s: Other (see Comments)< br>Duratio n of therapy: within 24 hours of surgery lactated 2019-0 2019- No CONTINUOUS Un mike ringers IV 11-26 PRN, ity of infusion 11:48: 12:52 [place] 00 :04 [facility] Medical 11/26/18 at Branch 0648, Until [facility] 11/26/18 at 0752, Routine, Intra-op Vital Signs Vital Name Observation Time Observation Value Comments Source Systolic blood 2020-02-05 13:45:00 155 mm[Hg] Univer sity of [facility] Diastolic blood 2020-02-05 13:45:00 63 mm[Hg] Unive rsity of [facility] Heart rate 2020-02-05 13:45:00 60 /min [facility] Body temperature 2020-02-05 13:45:00 36.5 Yuliet [facility] 2020-02-05 13:45:00 20 /min [facility] Oxygen saturation in 2020-02-05 13:45:00 98 /min [facility] Arterial blood by [facility] [place] Pulse oximetry [place] Body height 2020-02-03 20:00:00 157.5 cm [facility] Body weight 2020-02-03 20:00:00 97.977 kg [facility] BMI 2020-02-03 20:00:00 39.51 kg/m2 [facility] Systolic blood 2020-02-05 13:45:00 155 mm[Hg] Univer sity of pressure [facility] Diastolic blood 2020-02-05 13:45:00 63 mm[Hg] Unive rsity of [facility] Heart rate 2020-02-05 13:45:00 60 /min [facility] Body temperature 2020-02-05 13:45:00 36.5 [facility]uliet [facility] 2020-02-05 13:45:00 20 /min Univ ersity of [place] [facility] Oxygen saturation in 2020-02-05 13:45:00 98 /min University of Arterial blood by [place] Medi kev Pulse oximetry Branch Body height 2020-02-03 20:00:00 157.5 cm [facility] [place] [facility] Body weight 2020-02-03 20:00:00 97.977 kg [facility] [place] [facility] BMI 2020-02-03 20:00:00 39.51 kg/m2 [facility] [place] [facility] Systolic blood 2020-01-22 15:05:00 145 mm[Hg] Univer sity of pressure [place] [facility] Diastolic blood 2020-01-22 15:05:00 52 mm[Hg] Unive rsity of pressure [place] [facility] Heart rate 2020-01-22 15:05:00 64 /min [facility]i ty [facility] [place] [facility] Oxygen saturation in 2020-01-22 15:05:00 100 /min University of Arterial blood by [facility] [place] Pulse oximetry Branch Respiratory rate 2020-01-22 14:45:00 19 /min Univ ersity of [place] [facility] Body temperature 2020-01-22 14:35:00 36.39 Yuliet Univ ersity of [place] [facility] Body height 2020-01-21 13:45:00 160 cm [facility] [place] [facility] Body weight 2020-01-21 13:45:00 97.977 kg [facility] [place] [facility] BMI 2020-01-21 13:45:00 38.26 kg/m2 [facility] [place] [facility] Systolic blood 2020-01-22 15:05:00 145 mm[Hg] Univer sity of pressure [place] [facility] Diastolic blood 2020-01-22 15:05:00 52 mm[Hg] Unive rsity of pressure [place] [facility] Heart rate 2020-01-22 15:05:00 64 /min [facility]i ty [facility] [place] [facility] Oxygen saturation in 2020-01-22 15:05:00 100 /min University of Arterial blood by [place] Medi kev Pulse oximetry Branch Respiratory rate 2020-01-22 14:45:00 19 /min Univ ersity of [place] [facility] Body temperature 2020-01-22 14:35:00 36.39 Yuliet Univ ersity of [place] [facility] Body height 2020-01-21 13:45:00 160 cm [facility] [place] [facility] Body weight 2020-01-21 13:45:00 97.977 kg [facility] [place] [facility] BMI 2020-01-21 13:45:00 38.26 kg/m2 [facility] [place] [facility] Respiratory rate 2018-12-24 13:49:00 16 /min Univ ersity of [place] [facility] Oxygen saturation in 2018-12-24 13:49:00 97 /min University of Arterial blood by [facility] [place] Pulse oximetry Branch Body temperature 2018-12-24 13:35:00 36.06 Yuliet Univ ersity of [place] [facility] Systolic blood 2018-12-24 11:47:00 161 mm[Hg] Univer sity of pressure [place] [facility] Diastolic blood 2018-12-24 11:47:00 64 mm[Hg] Unive rsity of pressure [place] [facility] Heart rate 2018-12-24 11:47:00 66 /min [facility] [place] [facility] Body height 2018-11-21 15:00:00 160 cm [facility] [place] [facility] Body weight 2018-11-21 15:00:00 97.977 kg [facility] [place] [facility] BMI 2018-11-21 15:00:00 38.26 kg/m2 [facility] [place] [facility] Respiratory rate 2018-12-24 13:49:00 16 /min Univ ersity of [place] [facility] Oxygen saturation in 2018-12-24 13:49:00 97 /min University of Arterial blood by [facility] [place] Pulse oximetry Branch Body temperature 2018-12-24 13:35:00 36.06 Yuliet Univ ersity of [place] [facility] Systolic blood 2018-12-24 11:47:00 161 mm[Hg] Univer sity of pressure [place] [facility] Diastolic blood 2018-12-24 11:47:00 64 mm[Hg] Unive rsity of pressure [place] [facility] Heart rate 2018-12-24 11:47:00 66 /min [facility]i ty [facility] [place] [facility] Body height 2018-11-21 15:00:00 160 cm [facility] [place] [facility] Body weight 2018-11-21 15:00:00 97.977 kg [facility] [place] [facility] BMI 2018-11-21 15:00:00 38.26 kg/m2 [facility] [place] [facility] Systolic blood 2018-11-26 13:07:00 106 mm[Hg] Univer sity of pressure [place] [facility] Diastolic blood 2018-11-26 13:07:00 52 mm[Hg] Unive rsity of pressure [place] [facility] Heart rate 2018-11-26 13:07:00 65 /min [facility] [place] [facility] Respiratory rate 2018-11-26 13:07:00 16 /min Univ ersity of [place] [facility] Oxygen saturation in 2018-11-26 13:07:00 99 /min University of Arterial blood by [facility] kev Pulse oximetry Branch Body temperature 2018-11-26 12:52:00 36.22 Yuliet Univ ersity of [place] [facility] Body height 2018-11-21 15:00:00 160 cm Universi ty of [place] [facility] [place] Body weight 2018-11-21 15:00:00 97.977 kg Universi ty of [place] [facility] [place] BMI 2018-11-21 15:00:00 38.26 kg/m2 Universi ty of [facility] Systolic blood 2018-11-26 13:07:00 106 mm[Hg] Univer sity of pressure [facility] Diastolic blood 2018-11-26 13:07:00 52 mm[Hg] Unive rsity of pressure [place] [facility] Heart rate 2018-11-26 13:07:00 65 /min Universi ty [facility] [place] [facility] Respiratory rate 2018-11-26 13:07:00 16 /min Univ ersity of [place] [facility] Oxygen saturation in 2018-11-26 13:07:00 99 /min University of Arterial blood by [facility] [place] Pulse oximetry Branch Body temperature 2018-11-26 12:52:00 36.22 Yuliet Univ ersity of [facility] Body height 2018-11-21 15:00:00 160 cm [facility]i ty [facility] [place] [facility] Body weight 2018-11-21 15:00:00 97.977 kg [facility] [place] [facility] BMI 2018-11-21 15:00:00 38.26 kg/m2 Universi ty of [facility] Procedures Procedure Date / Time Performing Clinician Source Performed ASSIGNMENT OF BENEFITS 2021-03-16 16:42:42 Doctor Unassigned, No [facility] ASSIGNMENT OF BENEFITS 2020-09-03 15:54:13 Doctor Unassigned, No [facility] PHYSICIAN ORDERS 2020-03-19 06:01:00 [facility], [facility](AGE 2020-02-05 11:50:00 Tacho Hunt [facility] >30DAYS) Medical Branch CONSENT/REFUSAL FOR 2020-02-04 16:13:18 Doctor Unassigned, No [facility] Medical [place] ASSIGNMENT OF BENEFITS 2020-02-04 16:12:22 Doctor Unassigned, No [facility] DAY SURGERY - ADC 2020-01-22 05:01:00 Doctor Unassigned, No Univ ersity [facility] ASSIGNMENT OF BENEFITS 2020-01-13 15:51:08 Doctor Unassigned, No [facility] Branch [place] TIME 2018-12-24 15:32:19 Jamison Anderson [facility] (NON-REPORTABLE) Medical Branch POCT GLUCOSE(AGE 2018-12-24 12:18:00 Shaw Zeng [facility] >30DAYS) Medical Branch DAY SURGERY - ADC 2018-11-26 05:01:00 Doctor Unassigned, No [facility] CBC WITH DIFFERENTIAL 2018-11-20 17:34:00 [facility]EFITS 2018-11-20 17:14:19 Doctor Unassigned, No [facility] Encounters Start End Encounter Admission Attending Care Care Encounter Source Date/Time Date/Time Type Type Clinicians Facility Department ID 2021-02-06 Outpatient Debo PRESSLEY [facility] ASHLEY [id number] Univers 00:19:55 VIDAL [facility] 2021-02-05 Outpatient Debo PRESSLEY [facility] ASHLEY [id number] Univers 21:11:59 VIDAL [facility] 2021-03-16 2021-03-16 Outpatient R [facility] [id number] Univers 12:00:00 12:00:00 [id number] barbosa [facility] [place] [facility] 2021-03-16 2021-03-16 Outpatient R JUSTIN [facility] [id number] Univers 12:00:00 12:00:00 JAMISON erasmo [facility] [place] [facility] 2021-03-16 2021-03-16 Guide Visitor Lucina Baez Lab Main [facility] [place] 1.2.8 [id number] Univers 10:44:02 10:59:02 Visit Jamison Anderson [id number] ity of [id number] PROFESS[place] [id number] [address] 2021-03-16 2021-03-16 Orders Doctor YVONNE [id number] Univers 00:00:00 00:00:00 Only Unassigned, JEFF [id number] ity of [facility] [id number] Gurdeep as [id number] [address] 2020-09-03 2020-09-03 Guide Visitor Nestor, Adc Lab Main [facility] 1.2.8 [id number] [id number] Univers 11:00:33 11:15:33 Visit Jamison Anderson [id number] 0 [place]y of [id number] Profess[place] [id number] [address] 2020-09-03 2020-09-03 Outpatient R [facility] [id number] Univers 11:00:00 11:00:00 [id number] ity of [facility] 2020-09-03 2020-09-03 Outpatient R JUSTIN [facility] [id number] Univers 11:00:00 11:00:00 JAMISON ity of [facility] 2020-09-03 2020-09-03 Orders Doctor RUSSELL [id number] Univers 00:00:00 00:00:00 Only Unassigned, JEFF [id number] ity of [facility] [id number] Gurdeep as [id number] [address] 2020-03-19 2020-03-19 Guide Visitor Nestor, Adc Lab Main [facility] 1.2.8 40.114 [id number] Univers 13:45:05 14:00:05 Visit Jamison Anderson [id number] 0 [place] of [place] [id number] Professio [id number] [address] 2020-03-19 2020-03-19 Guide Visitor Pob, Adc [facility] 1.2.840.114 [id number] 13:45:05 14:00:05 Visit Lab Main Linda 350.1.13.10 [place] 4.2.7.2.686 Professio [id number] [address] 2020-03-19 2020-03-19 Outpatient R [facility] [id number] Univers 13:45:00 13:45:00 [id number] ity [facility] 2020-03-19 2020-03-19 [facility] [id number] Univers 13:45:00 13:45:00 JAMISON ity [facility] 2020-03-19 2020-03-19 Orders Doctor YVONNE 1.2.840.114 [id number] Univers 00:00:00 00:00:00 Only Unassigned, JEFF 350.1.13.10 ity of [place] [facility] 4.2.7.2.686 Gurdeep as [id number] [address] 2020-03-19 2020-03-19 Orders Doctor RUSSELL 1.2.840.114 [id number] 00:00:00 00:00:00 Only Unassigned, JEFF 350.1.13.10 [place] [facility] 4.2.7.2.686 [id number] [facility] 2020-02-05 2020-02-05 [facility] 1.2.149.406 [id number] Univers 06:30:00 09:06:00 Encounter Vidal Mckeon 350.1.13.10 ity [place] [id number] [facility] ical [facility] [address] [place] [address] 2020-02-05 2020-02-05 [facility] [id number] 06:30:00 09:06:00 Encounter Vidal Mckeon 350.1.13.10 [place] 4.2.7.2.686 Surgical [id number] [place] [address] 2020-02-04 2020-02-04 Laboratory Only, Adc Test [facility] 1.2.840. 114 [id number] Univers 11:11:09 11:26:09 Only Vidal Pressley 350.1.13.1 0 it[place].2.[place] [id number] [facility] [address] [place] 2020-02-04 2020-02-04 Laboratory Only, Adc [facility] 1.2.840.114 [id number] 11:11:09 11:26:09 Only Test Happy 350.1.13.10 [place] 4.2.7.2.686 [place] [id number] 353 2020-02-04 2020-02-04 Outpatient R [facility] [id number] -[id number] Univers 11:15:00 11:15:00 [id number] [facility] 2020-02-04 2020-02-04 Outpatient R [facility] [id number] Univers 10:45:00 10:45:00 VIDAL [facility] 2020-01-22 2020-01-22 [facility] [id number] Univers 07:33:00 10:10:00 Encounter Vidal Mckeon 350.1.13.10 [facility] [place] [id number] [facility] [address] 2020-01-22 2020-01-22 [facility] [id number] 07:33:00 10:10:00 Encounter Vidal Mckeon 350.1.13.10 [place] 4.2.7.2.686 Surgical [id number] [place] [address] 2020-01-22 2020-01-22 Orders Doctor RUSSELL 1.2.840.114 [id number] Univers 00:00:00 00:00:00 Only Unassigned, JEFF 350.1.13.10 ity of [place] [facility] 4.2.7.2.686 Gurdeep as [id number] [facility] [address] 2020-01-22 2020-01-22 Orders Doctor RUSSELL 1.2.840.114 [id number] 00:00:00 00:00:00 Only Unassigned, JEFF 350.1.13.10 [place] [facility] 4.2.7.2.686 [id number] 009 2020-01-21 2020-01-21 Laboratory Only, Adc Test [facility] 1.2.840. 114 [id number] Univers 08:52:59 09:07:59 Only Vidal Pressley 350.1.13.1 0 ity of [place] 4.2.7.2.686 [facility] [id number] [address] 2020-01-21 2020-01-21 Laboratory Only, [facility] 1.2.840.114 [id number] 08:52:59 09:07:59 Only Test Linda 350.1.13.10 [place] 4.2.7.2.686 [place] [id number] [facility] 2020-01-21 2020-01-21 [facility]patient [facility] [id number]-20 Univers 09:00:00 09:00:00 VIDAL [id number] ity [facility] 2020-01-21 2020-01-21 Outpatient [facility] [id number] Univers 09:00:00 09:00:00 VIDAL erasmo [facility] 2020-01-13 2020-01-13 Guide Visitor 1, [facility] Lab [facility] 1.2.840.114 [id number] Univers 10:48:26 11:03:26 Visit Vidal Pressley 350.1.13.1 0 ity of [place] 4.2.7.2.686 [facility] [id number] [address] 2020-01-13 2020-01-13 Guide Visitor 1, [facility] Lab [facility] 1.2.840.114 [id number] 10:48:26 11:03:26 Visit Linda 350.1.13.10 [place] 4.2.7.2.686 [place] [id number] 353 2020-01-13 2020-01-13 Outpatient R [facility] [id number] Univers 10:30:00 10:30:00 VIDAL barbosa [facility] 2020-01-13 2020-01-13 Orders Doctor RUSSELL 1.2.840.114 [id number] 00:00:00 00:00:00 Only Unassigned, JEFF 350.1.13.10 [place] [facility] 4.2.7.2.686 [id number] 009 2020-01-13 2020-01-13 Orders Doctor RUSSELL 1.2.840.114 [id number] Univers 00:00:00 00:00:00 Only Unassigned, JEFF 350.1.13.10 ity of [place] [facility] 4.2.7.2.686 Gurdeep as [id number] [address] 2018-12-24 2018-12-24 [facility] 1.2.840.114 [id number] 06:28:00 09:10:00 Encounter Jamison S Happy 350.1.13.10 [place] 4.2.7.2.686 Surgical [id number] [place] [address] 2018-12-24 2018-12-24 [facility] 1.2.840.114 [id number] [facility] 06:28:00 09:10:00 Encounter Jamison S Happy 350.1.13.10 ity of [place]2.[place] [id number] [address] 2018-11-26 2018-11-26 [facility] 1.2.840.114 [id number] 06:28:00 08:32:00 Encounter Jamison S Happy 350.1.13.10 [place] 4.2.7.2.686 Surgical [id number] [place] [address] 2018-11-26 2018-11-26 [facility] 1.2.840.114 [id number] [facility] 06:28:00 08:32:00 Encounter Jamison S Happy 350.1.13.10 ity of [place] 4[place].2.[place] [id number] [address] 2018-11-26 2018-11-26 Anesthesia [facility] 1.2.840.114 [id number] 07:33:00 07:50:00 Brad J Happy 350.1.13.10 [place] 4.2.7.2.686 Surgical [id number] [place] [address] 2018-11-26 2018-11-26 Anesthesia [facility] 1.2.840.114 [id number] [facility] 07:33:00 07:50:00 Brad J Happy 350.1.13.10 ity [place] 4[place].2.[place] [id number] [facility] [address] 2018-11-26 2018-11-26 Orders Doctor YVONNE 1.2.840.114 [id number] 00:00:00 00:00:00 Only Unassigned, JEFF 350.1.13.10 [place] [facility] 4.2.7.2.686 [id number] 009 2018-11-26 2018-11-26 Orders Doctor YVONNE 1.2.840.114 [id number] Univers 00:00:00 00:00:00 Only Unassigned, JEFF 350.1.13.10 [facility] of [place] [facility] 4.2.7.2.686 Gurdeep [id number] [facility] [address] 2018-11-20 2018-11-20 Guide Visitor 1, Adc Lab [facility] 1.2.840.114 [id number] [facility] 12:26:06 12:41:06 Visit JustinJamison [place] 350.1.13.1 0 ity of [place] 4.2.7.2.686 [facility] [id number] [facility] [address] 2018-11-20 2018-11-20 Guide Visitor 1, Adc Lab [facility] 1.2.840.114 [id number] 12:26:06 12:41:06 Visit Happy 350.1.13.10 [place] 4.2.7.2.686 [place] [id number] 353 Results Test Description Test Time Test Comments Results Result Comments Source POCT Glucose 2020-02-05 11:50:00 Test Item Value Reference Range Interpretation Comme nts POCT Glu (age>30days) (test code = 3342) 100 mg/dL 70-110 Lab Interpretation (test code = 45596-0) [facility]2018-12-24 15:33:07 These images do not require a Radiology diagnostic report.[facility] >30DAYS)2018-12-24 12:18:00 Test Item Value Reference Range Interpretation Comments POCT Glu (age>30days) (test code = 108 mg/dL 70-110 3342) Lab Interpretation (test code = Normal 78750-4) [facility] WITH [id number] 17:52:00 Test Item Value Reference Range Interpretation Comments WBC (test code = See_Comment [Automated 6690-2) message] The sy stem which generated this result transmitted reference range : 4.30 - 11.10 10*3/?L. The reference range was not used to interpret this result as normal/abnormal . RBC (test code = See_Comment L [Automated 789-8) message] The sy stem which generated this result transmitted reference range : 3.93 - 5.25 10*6/?L. The reference range was not used to interpret this result as normal/abnormal . HGB (test code = 10.8 g/dL 11.6-15 L 718-7) HCT (test code = 32.7 % 35.7-45.2 L 4544-3) MCV (test code = 87.0 fL 80.6-95.5 787-2) MCH (test code = 28.7 pg 25.9-32.8 785-6) MCHC (test code = 33.0 g/dL 31.6-35.1 786-4) RDW-SD (test code = 44.3 fL 39-49.9 45840-5) RDW-CV (test code = 14.0 % 12-15.5 788-0) PLT (test code = See_Comment [Automated 777-3) message] The sy stem which generated this result transmitted reference range : 166 - 358 10*3/ ?L. The reference r latanya was not used to interpret this result as normal/abnormal . MPV (test code = 12.1 fL 9.5-12.9 44944-9) NRBC/100 WBC (test See_Comment [Automat ed code = [id number]) message] The system which generated this result transmitted reference range : 0.0 - 10.0 /100 WBCs. The refer ence range was not u sed to interpret th is result as normal/abnormal . NRBC x10^3 (test code <0.01 See_Comment [Auto mated = [id number]) message] The s ystem which generated this result transmitted reference range : 10*3/?L. The reference range was not used to interpret this result as normal/abnormal . GRAN MAT (NEUT) % 55.7 % (test code = 770-8) IMM GRAN % (test code 0.50 % = 1880039883) LYMPH % (test code = 31.0 % 736-9) MONO % (test code = 7.9 % 5905-5) EOS % (test code = 4.3 % 713-8) BASO % (test code = 0.6 % 706-2) GRAN MAT x10^3(ANC) 5.76 10*3/uL 1.88-7.09 (test code = 7647896124) IMM GRAN x10^3 (test 0.05 10*3/uL 0-0.06 code = 7600460806) LYMPH x10^3 (test code 3.20 10*3/uL 1.32-3.29 = 731-0) MONO x10^3 (test code 0.82 10*3/uL 0.33-0.92 = 742-7) EOS x10^3 (test code = 0.44 10*3/uL 0.03-0.39 H 711-2) BASO x10^3 (test code 0.06 10*3/uL 0.01-0.07 = 704-7) Lab Interpretation Abnormal (test code = 91365-5) [facility]
--- NOTE | 2021-04-05 10:52 | RAD REPORT ---
EXAM DESCRIPTION: RAD - Ankle Left 3 View - 04/05/2021 10:32 am CLINICAL HISTORY: PAIN, trauma, ankle pain, ankle deformity COMPARISON: No pre injury imaging of the left ankle FINDINGS: Left ankle portable imaging obtained immediately followed by two-view postreduction imagin g that is separately detailed. The initial three-view examination shows trimalleolar fracture dislocation of the left ankle. There i s posterior dislocation of the talus. Posterior malleolus tibia fracture fragment is present but marvin ins position to the dislocated dome of the talus. Oblique fracture through the distal fibula is prese nt with approximately 30 degree posterior angulation deformity. There is a 20 degree lateral angulati on deformity is present. The dislocation is also lateral by 1.5 cm. Transverse fracture of the medial malleolus is present with the fracture fragment remaining position to the dome of the talus. Soft ti ssue swelling is present around the ankle joint. IMPRESSION: Left ankle trimalleolar fracture dislocation as detailed.
--- NOTE | 2021-04-05 10:54 | RAD REPORT ---
EXAM DESCRIPTION: RAD - Ankle Left 2 View - 04/05/2021 10:32 am CLINICAL HISTORY: POST REDUCTION, left ankle trimalleolar fracture COMPARISON: Ankle Left 3 View dated 04/05/2021 FINDINGS: A two-view portable AP and cross-table lateral examination was performed. Splinting is in place. Exam was performed immediately following the three-view left ankle examination. The posterior dislocation of the talus has been corrected. Lateral talar dome displacement of approxi mately 7 mm still remains. Angulation deformity of the distal fibula fracture fragment has been corre cted. Approximately 2 mm lateral displacement of the distal fracture fragment still persists. Displac ement of the posterior malleolus fracture fragment has been mostly corrected. IMPRESSION: Post reduction imaging of the left ankle trimalleolar fracture dislocation as detailed.
--- NOTE | 2021-04-05 11:07 | EDPHYS ---
Physician Documentation [facility] Name: Kaylah Dos Santos Age: 81 yrs Sex: Female : 1940 Arrival Date: 04/05/2021 Time: 09:18 Bed 9 Private MD: ED Physician Mukesh Moses HPI: 04/05 09:29 This 81 yrs old Female presents to ER via Ambulatory with complaints of Ankle avery Injury, Fall Injury. 09:29 The patient presents with decreased range of motion, pain, that is acute. The avery complaints affect the left ankle. Onset: The symptoms/episode began/occurred just prior to arrival. Context: The problem was sustained at home. Associated signs and symptoms: The patient has no apparent associated signs or symptoms. Modifying factors: The symptoms are alleviated by elevation of extremity, the symptoms are aggravated by weight bearing, movement. Severity of symptoms: At their worst the symptoms were moderate, in the emergency department the symptoms are unchanged. The patient has not experienced similar symptoms in the past. Historical: - Allergies: 09:19 No Known Allergies; ll1 - PMHx: 09:49 Diabetes mellitus; Hypertensive disorder; Hypercholesterolemia; ll1 - PSHx: 09:49 None; ll1 - Immunization history:: Adult Immunizations up to date, Client reports receiving the 2nd dose of the Covid vaccine, Last tetanus immunization: up to date. - Social history:: Smoking status: Patient denies any tobacco usage or history of. - Family history:: not pertinent. ROS: 09:29 Constitutional: Negative for fever, chills, and weight loss, Eyes: Negative for injury, avery pain, redness, and discharge, ENT: Negative for injury, pain, and discharge, Neck: Negative for injury, pain, and swelling, Cardiovascular: Negative for chest pain, palpitations, and edema, Respiratory: Negative for shortness of breath, cough, wheezing, and pleuritic chest pain, Abdomen/GI: Negative for abdominal pain, nausea, vomiting, diarrhea, and constipation, Back: Negative for injury and pain, : Negative for injury, bleeding, discharge, and swelling, Skin: Negative for injury, rash, and discoloration, Neuro: Negative for headache, weakness, numbness, tingling, and seizure, Psych: Negative for depression, anxiety, suicide ideation, homicidal ideation, and hallucinations, Allergy/Immunology: Negative for hives, rash, and allergies, Endocrine: Negative for neck swelling, polydipsia, polyuria, polyphagia, and marked weight changes, Hematologic/Lymphatic: Negative for swollen nodes, abnormal bleeding, and unusual bruising. 09:29 MS/extremity: Positive for decreased range of motion, pain, swelling, tenderness, of the left foot, left lateral ankle and anterior aspect of left ankle. Exam: 09:29 Constitutional: This is a well developed, well nourished patient who is awake, alert, avery and in no acute distress. Head/Face: Normocephalic, atraumatic. Eyes: Pupils equal round and reactive to light, extra-ocular motions intact. Lids and lashes normal. Conjunctiva and sclera are non-icteric and not injected. Cornea within normal limits. Periorbital areas with no swelling, redness, or edema. ENT: Nares patent. No nasal discharge, no septal abnormalities noted. Tympanic membranes are normal and external auditory canals are clear. Oropharynx with no redness, swelling, or masses, exudates, or evidence of obstruction, uvula midline. Mucous membranes moist. Neck: Trachea midline, no thyromegaly or masses palpated, and no cervical lymphadenopathy. Supple, full range of motion without nuchal rigidity, or vertebral point tenderness. No Meningismus. Chest/axilla: Normal chest wall appearance and motion. Nontender with no deformity. No lesions are appreciated. Cardiovascular: Regular rate and rhythm with a normal S1 and S2. No gallops, murmurs, or rubs. Normal PMI, no JVD. No pulse deficits. Respiratory: Lungs have equal breath sounds bilaterally, clear to auscultation and percussion. No rales, rhonchi or wheezes noted. No increased work of breathing, no retractions or nasal flaring. Abdomen/GI: Soft, non-tender, with normal bowel sounds. No distension or tympany. No guarding or rebound. No evidence of tenderness throughout. Back: No spinal tenderness. No costovertebral tenderness. Full range of motion. Female : Normal external genitalia. Skin: Warm, dry with normal turgor. Normal color with no rashes, no lesions, and no evidence of cellulitis. Neuro: Awake and alert, GCS 15, oriented to person, place, time, and situation. Cranial nerves II-XII grossly intact. Motor strength 5/5 in all extremities. Sensory grossly intact. Cerebellar exam normal. Normal gait. Psych: Awake, alert, with orientation to person, place and time. Behavior, mood, and affect are within normal limits. 09:29 Musculoskeletal/extremity: ROM: intact in all extremities, Circulation is intact in all extremities. Sensation intact. Compartment Syndrome exam of affected extremity: is normal. DVT Exam: negative Homans' sign noted on exam, no appreciated bluish discoloration, no erythema, no increased warmth, pain, swelling, tenderness. Vital Signs: 10:19 BP 173 / 67; Pulse 64; Resp 17; Temp 97.9; Pulse Ox 99% on R/A; Pain 5/10; ll1 12:58 BP 154 / 56; Pulse 67; Resp 17; Pulse Ox 99% on R/A; ll1 MDM: 09:23 Patient medically screened. [facility] 09:31 Differential diagnosis: fracture, sprain, arthritis. Data reviewed: vital signs, nurses avery notes, radiologic studies, plain films. Data interpreted: monitor technician: not applicable for this patient encounter. rate is 65 beats/min, rhythm is regular, Pulse oximetry: on room air is 96 %. Test interpretation: by ED physician or midlevel provider: plain radiologic studies. Counseling: I had a detailed discussion with the patient and/or guardian regarding: the historical points, exam findings, and any diagnostic results supporting the discharge/admit diagnosis, lab results. 04/05 11:07 Order name: Basic Metabolic Panel [facility] 04/05 09:29 Order name: Ankle Left 3 View XRAY; Complete Time: 11:07 [facility] 04/05 10:30 Order name: Ankle Left 2 View; Complete Time: 11:07 [facility] 04/05 11:07 Order name: XRAY Chest (1 view); Complete Time: 12:48 [facility] 04/05 09:29 Order name: Ice pack; Complete Time: 09:30 [facility] 04/05 11:07 Order name: Cardiac monitoring; Complete Time: 12:57 [facility] 04/05 11:07 Order name: IV Saline Lock; Complete Time: 11:28 [facility] 04/05 11:07 Order name: Labs collected and sent; Complete Time: 11:28 [facility] 04/05 11:07 Order name: O2 Per Protocol; Complete Time: 11:28 [facility] 04/05 11:07 Order name: O2 Sat Monitoring; Complete Time: 11:28 avery Administered Medications: 09:29 Drug: NS 0.9% 1000 ml Route: IV; Rate: 125 ml/hr; Site: left forearm; ll1 12:57 Follow up: Response: No adverse reaction; IV Status: Completed infusion ll1 12:49 Drug: Zofran (Ondansetron) 4 mg Route: IVP; Site: right forearm; ll1 12:58 Follow up: Response: No adverse reaction ll1 12:50 Drug: morphine 4 mg Route: IVP; Site: left forearm; ll1 12:58 Follow up: Response: No adverse reaction ll1 Disposition Summary: 04/05/21 11:06 Transfer Ordered Transfer Location: [facility] Reason: Higher level of care avery Condition: Stable avery Problem: new avery Symptoms: have improved avery Accepting Physician: to [facility](04/05/21 12:59) ll1 Diagnosis - Displaced fracture of medial malleolus of left tibia avery - Displaced trimalleolar fracture of left lower leg, initial encounter for closed avery fracture Forms: - Medication Reconciliation Form avery - SBAR form avery Signatures: Dispatcher [employer] EDMS Mukesh Moses MD MD cha Lewis, Lynsay RN RN ll1 Corrections: (The following items were deleted from the chart) 10:30 10:25 Ankle Left 3 View+RAD.RAD.BRZ ordered. [facility] EDMS 12:57 11:07 EKG - Nurse/Tech ordered. [facility] ll1 12:59 11:06 to [facility]
--- NOTE | 2021-04-05 11:07 | ER ---
Nurse's Notes [facility] Name: Kaylah Dos Santos Age: 81 yrs Sex: Female : 1940 Arrival Date: 04/05/2021 Time: 09:18 Bed 9 Private MD: Diagnosis: Displaced fracture of medial malleolus of left tibia;Displaced trimalleolar fracture of left lower leg, initial encounter for closed fracture Presentation: 04/05 09:19 Chief complaint: Patient states: Fall from standing. L ankle deformity noted. PMS ll1 intact. Coronavirus screen: Client denies travel out of the [place] in the last 14 days. Ebola Screen: Patient denies travel to an Ebola-affected area in the 21 days before illness onset. Initial Sepsis Screen: Does the patient meet any 2 criteria? No. Patient's initial sepsis screen is negative. Does the patient have a suspected source of infection? Yes: Bone or joint infection. Risk Assessment: Do you want to hurt yourself or someone else? Patient reports no desire to harm self or others. Onset of symptoms was April 05, 2021. 09:19 Acuity: MACIEL 3 ll1 09:19 Method Of Arrival: Ambulatory ll1 Triage Assessment: 09:20 General: Appears uncomfortable, Behavior is calm, cooperative, appropriate for age. ll1 Pain: Complains of pain in left lateral ankle Quality of pain is described as aching, Aggravated by increased activity. Neuro: No deficits noted. Cardiovascular: No deficits noted. Respiratory: No deficits noted. Musculoskeletal: Circulation, motion, and sensation intact. Capillary refill < 3 seconds, Bony deformity noted of left lateral ankle Tenderness present in left lateral ankle. Historical: - Allergies: 09:19 No Known Allergies; ll1 - PMHx: 09:49 Diabetes mellitus; Hypertensive disorder; Hypercholesterolemia; ll1 - PSHx: 09:49 None; ll1 - Immunization history:: Adult Immunizations up to date, Client reports receiving the 2nd dose of the Covid vaccine, Last tetanus immunization: up to date. - Social history:: Smoking status: Patient denies any tobacco usage or history of. - Family history:: not pertinent. Screenin:42 Abuse screen: Denies threats or abuse. Nutritional screening: No deficits noted. ll1 Tuberculosis screening: No symptoms or risk factors identified. Fall Risk Fall in past 12 months (25 points). IV access (20 points). Gait- Impaired (20 pts.). Total Ayala Fall Scale indicates High Risk Score (45 or more points). Fall prevention measures have been instituted. Side Rails Up X 2 Placed Close to Nursing Station Frequent Obs/Assessments Occuring Family Present and informed to notify staff if the need to leave the bedside As available patient and family educated on Fall Prevention Program and Strategies. Assessment: 10:20 Reassessment: No changes from previously documented assessment. Patient and/or family ll1 updated on plan of care and expected duration. Pain level reassessed. Patient is alert, oriented x 3, equal unlabored respirations, skin warm/dry/pink. 11:20 Reassessment: No changes from previously documented assessment. Patient and/or family ll1 updated on plan of care and expected duration. Pain level reassessed. Patient is alert, oriented x 3, equal unlabored respirations, skin warm/dry/pink. Musculoskeletal: Circulation, motion, and sensation intact. Capillary refill < 3 seconds. 12:20 Reassessment: No changes from previously documented assessment. Patient and/or family ll1 updated on plan of care and expected duration. Pain level reassessed. Patient is alert, oriented x 3, equal unlabored respirations, skin warm/dry/pink. Vital Signs: 10:19 BP 173 / 67; Pulse 64; Resp 17; Temp 97.9; Pulse Ox 99% on R/A; Pain 5/10; ll1 12:58 BP 154 / 56; Pulse 67; Resp 17; Pulse Ox 99% on R/A; ll1 ED Course: 09:18 Patient arrived in ED. ll1 09:18 Arm band placed on Patient placed in an exam room, on a stretcher. ll1 09:22 Triage completed. ll1 09:23 Mukesh Moses MD is Attending Physician. [facility] [place] [facility] 09:29 Maris Garza RN is Primary Nurse. ll1 09:42 Patient has correct armband on for positive identification. Bed in low position. Call ll1 light in reach. Side rails up X2. Pulse ox on. NIBP on. 10:32 Ankle Left 3 View XRAY In Process Unspecified. EDMS 10:32 Ankle Left 2 View In Process Unspecified. EDMS 11:37 No provider procedures requiring assistance completed. Patient transferred, IV remains ll1 in place. 11:52 XRAY Chest (1 view) In Process Unspecified. EDMS Administered Medications: 09:29 Drug: NS 0.9% 1000 ml Route: IV; Rate: 125 ml/hr; Site: left forearm; ll1 12:57 Follow up: Response: No adverse reaction; IV Status: Completed infusion ll1 12:49 Drug: Zofran (Ondansetron) 4 mg Route: IVP; Site: right forearm; ll1 12:58 Follow up: Response: No adverse reaction ll1 12:50 Drug: morphine 4 mg Route: IVP; Site: left forearm; ll1 12:58 Follow up: Response: No adverse reaction ll1 Outcome: 11:06 ER care complete, transfer ordered by MD. varela 11:37 Transferred by ground EMS to [facility], Transfer form completed. X-rays sent ll1 w/ patient. 11:37 Condition: stable 11:37 Instructed on the need for transfer. 12:59 Patient left the ED. 1 Signatures: Dispatcher [employer] EDMS Mukesh Moses MD MD cha Lewis, Lynsay, RN RN ll1
--- NOTE | 2021-04-05 12:28 | RAD REPORT ---
EXAM DESCRIPTION: RAD - Chest Single View - 04/05/2021 11:52 am CLINICAL HISTORY: COUGH, right ankle fracture dislocation preop examination COMPARISON: April 2013 TECHNIQUE: AP portable chest image was obtained 04/05/2021 11:52 am . FINDINGS: No acute lung parenchymal process. Interstitial pattern is similar to comparison. Heart an d vasculature are normal. No measurable pleural effusion and no pneumothorax. No acute bony abnormali ty seen. No acute aortic findings suspected. IMPRESSION: No acute cardiopulmonary process.
[2021-04-05] MEDS ORDERED: MORPHINE 4 MG/ML SYR ONE (12:50)
[2021-04-05] MEDS ORDERED: ONDANSETRON 4 MG/2 ML VIAL ONE (12:50)
[2021-04-05 14:13] VITALS: TEMP 97.9; O2SAT 99
[2021-04-05 14:14] VITALS: BP 154/56
== END 2021-04-05 12:59 | disposition short-term general hospital (02) ==
LOC: ER 09:13
DX: S82.52XA Displaced fracture of medial malleolus of left tibia, initial encounter for closed fracture (principal); S82.852A Displaced trimalleolar fracture of left lower leg, initial encounter for closed fracture; W19.XXXA Unspecified fall, initial encounter; Y92.009 Unspecified place in unspecified non-institutional (private) residence as the place of occurrence of the external cause; I10 Essential (primary) hypertension
CPT/HCPCS: 71045; 73610; 73600; 99285; J2405